=== PATIENT | female | born 1990 | race Caucasian/White ===

== ENCOUNTER 2023-05-04 02:31 | Emergency (ER) | payer OTHER ==
[~2023-05-04] VITALS: Ht 165.1 cm; Wt 90.7 kg
[2023-05-04 03:08] LABS: BASOPHILS 0.8 % (0-2); EOSINOPHILS 2.5 % (0-6); HEMATOCRIT 37.5 % (35.0-50.0); HEMOGLOBIN 12.4 g/dL (12.0-18.0); LYMPHOCYTES 29.2 % (24-44); MCH 29.4 (27-36); MCHC 33.2 g/dl (30-36); MCV 88.7 fl (81-99); MONOCYTES 7.8 % (0-12); NEUTROPHILS 59.7 % (39-80); PLATELET COUNT 413 K/uL (140-440); RBC 4.22 M/ul (4.3-5.7); RDW 12.9 (10.5-15.0)
[2023-05-04 03:22] LABS: ALBUMIN 3.5 g/dL (3.4-5.0); ALBUMIN/GLOBULIN RATIO 1.03 (1.1-2.4); ANION GAP 12.7 (7-21); BILIRUBIN, TOTAL 0.2 ng/dL (0.2-1.0); BUN/CREATININE RATIO 20.25 (6.0-28.6); CALCIUM 8.6 mg/dL (8.5-10.1); CREATININE, SERUM 0.79 mg/dL (0.55-1.02); POTASSIUM 3.7 mmol/L (3.5-5.1); PROTEIN, TOTAL 6.9 g/dL (6.4-8.2)
[2023-05-04 04:21] LABS: BILIRUBIN, URINE NEGATIVE (negative); BLOOD/HGB, URINE NEGATIVE (Negative); KETONE, URINE NEGATIVE (Negative); LEUK ESTERASE, URINE NEGATIVE (negative); NITRITE, URINE NEGATIVE (negative)
[2023-05-04 04:26] LABS: EPITHELIAL CELLS, URINE NONE SEEN /lpf (0-1+); RED BLOOD CELLS, URINE 0-1 /hpf (0-5); WHITE BLOOD CELLS, URINE 0-1 /HPF (0-5)
[2023-05-04 04:27] LABS: BACTERIA, URINE 1+ /hpf (negative); CASTS, URINE NONE SEEN \\lpf; COLLECTION TYPE, URINE CLEAN CATCH; CRYSTALS, URINE AMORPHOUS PHOSPH 1+ (0-1+); REFLEX CULTURE, URINE No (No)
[2023-05-04] MEDS ORDERED: ONDANSETRON ODT8 MG PO (05:09)
[2023-05-04] MEDS ORDERED: HYDROCODON-ACE1 EA10 PO (05:09)
[2023-05-04 05:40] VITALS: BP 135/95
== END 2023-05-04 05:40 | disposition home or self-care (01) ==
LOC: ED 02:31
PROVIDERS: Emergency Medicine
DX: K80.70 Calculus of gallbladder and bile duct without cholecystitis without obstruction (principal); Z88.1 Allergy status to other antibiotic agents
CPT/HCPCS: 36415; 76705; 80053; 81001; 83690; 84703; 85025; 96374; 96375; 96376; 99284-25; A9270; J1170; J2405; J7030